=== PATIENT | female | born 1990 | race Caucasian/White ===

== ENCOUNTER 2016-06-28 12:07 | Inpatient (IN) | payer OTHER ==
[2016-06-28 13:19] VITALS: BMI 28.3
--- NOTE | 2016-06-28 13:29 | OBHP ---
Datetime: 06/28/2016 13:23 IP Adm Impression: Term, intrauterine IP Admit Plan: Admit to unit; Initiate labor protocol Admit Comment, IP Provider: 25 yo edc 07/03 presents @ 39.2wks w/ c/o srom @10:45 am and ctxs sin ce 5am. +coitus last night. denies decreased fm or problems with preg. pmhx _ pshx: denies nkda medic: pnv shx: denies etoh, drugs or tobacco use obhx: i: 39.2wk srom p: admit for epidural when pt request dr knowles notified. Latent Phase Labor Pelvic Type - PN: Adequate Extremities - PN: Normal Abdomen - PN: Normal Lungs - PN: Normal Heart - PN: Normal Neurologic - PN: Normal HEENT - PN: Normal General - PN: Normal Presentation-Admit: Vertex FHR - Baseline A Provider: 120 Membranes, Provider: Ruptured Comments, ACOG Physical Exam: gbs neg IP Chief Complaint: Uterine contractions; Suspected ruptured membranes NICHD Variability Prov Fetus A: Moderate 6-25bpm NICHD Accel Fetus A IP Provider: [id number] FHR Category Provider Fetus A: Category I NICHD Decel Fetus A IP Provider: None Dilatation, Provider: 3 Effacement, Provider: 80 Station, Provider: -2 Genitourinary Exam: Normal
[2016-06-28] MEDS ORDERED: Lactated Ringer's 1,000 ML IV SCH ×2 (13:30→14:30)
[2016-06-28] MEDS ORDERED: Oxytocin 30 units/LR 500ML 500 ML IV SCH ×2 (13:45→16:05)
[2016-06-28 14:22] LABS: BASO % 0.1 % (0.0-2.0); EOS % 0.3 % (0.0-4.0); HEMATOCRIT 38.5 % (34.0-47.0); LYMPH # 1.8 K/uL (1.0-4.3); LYMPH % 14.8 % (20.0-40.0); MEAN CELL VOLUME 86.4 fl (81.0-99.0); MEAN CORPUSCULAR HEMOGLOBIN 28.2 pg (27.0-31.0); MEAN CORPUSCULAR HGB CONC 32.6 g/dL (33.0-37.0); MONO # 0.5 K/uL (0.0-0.8); MONO % 4.5 % (0.0-10.0); NEUT # 9.8 K/uL (1.8-7.0); NEUT % 80.3 % (50.0-75.0); NRBC % 0.1 % (0.0-0.0); RED CELL DISTRIBUTION WIDTH 14.9 % (11.5-14.5); WHITE BLOOD COUNT 12.2 K/uL (4.8-10.8)
--- NOTE | 2016-06-28 14:27 | OBADHP ---
Datetime: 06/28/2016 14:24 Admit Comment, IP Provider: 25 yo edc / presents @ 39.2wks w/ c/o srom @10:45 am and ctxs sin ce 5am. +coitus last night. denies decreased fm or problems with preg. pmhx _ pshx: denies nkda medic: pnv shx: denies etoh, drugs or tobacco use obhx: i: 39.2wk srom Latent Phase Labor p: admit for epidural when pt request begin augmentation with pit per dr. knowles Datetime: 06/28/2016 13:23 Pelvic Type - PN: Adequate Extremities - PN: Normal Abdomen - PN: Normal Lungs - PN: Normal Heart - PN: Normal Neurologic - PN: Normal HEENT - PN: Normal General - PN: Normal Presentation-Admit: Vertex FHR - Baseline A Provider: 120 Membranes, Provider: Ruptured Comments, ACOG Physical Exam: gbs neg IP Chief Complaint: Uterine contractions; Suspected ruptured membranes NICHD Variability Prov Fetus A: Moderate 6-25bpm NICHD Accel Fetus A IP Provider: [id number] FHR Category Provider Fetus A: Category I NICHD Decel Fetus A IP Provider: None Dilatation, Provider: 3 Effacement, Provider: 80 Station, Provider: -2 Genitourinary Exam: Normal IP Adm Impression: Term, intrauterine IP Admit Plan: Admit to unit; Initiate labor protocol
[2016-06-28] MEDS ORDERED: Fentanyl/Bupivacaine HCl 250 ML EPI ONE (15:01)
--- NOTE | 2016-06-28 16:17 | OBDS ---
DELIVERY PERSONNEL Nurse Validation Architect Certified: lamont Delivery Doctor: Danie Mann MD Scrub Nurse: lamont Preschool Substitute Teacher: Ines Segundo RN Anesthesiologist: Geothermal Operating Engineer: na MATERNAL INFORMATION Delivery Anesthesia: Epidural Maternal Complications: None Provider Comments: of live female over intact perineum in SALEEM presentation, followed by shoulder and rest of infant atraumatically, mouth and nose suctioned, cord clamped and cut, cord bloo d obtained, placenta delivered spontaneously, fundus firm, EBL = 150 ml, first degree laceration repa ired with 3-0 vicryl rapide, pt tolerated procedure well LABOR SUMMARY EDC: 07/03/2016 00:00 No. Babies in Womb: 1 Attempted: No Labor Anesthesia: Epidural LABOR INFORMATION Reason for Induction: Not Applicable Onset of Labor: 06/28/2016 05:00 Complete Dilatation: 06/28/2016 15:30 Other Ripening Agents: na Oxytocin: N/A Group B Beta Strep: Negative (Annotations: Data stored by N on behalf of user) Antibiotics # of Doses: na Antibiotics Time of Last Dose: na Steroids Given: None Reason Steroids Not Administered: Not Applicable MEMBRANES Membranes Rupture Method: Spontaneous Rupture of Membranes: 06/28/2016 10:45 Amniotic Fluid Color: Clear Amniotic Fluid Amount: None Amniotic Fluid Odor: Normal STAGES OF LABOR Stage 1 hrs: 10 Stage 1 min: 30
[2016-06-28] MEDS ORDERED: Oxycodone/Acetaminophen 5/325 mg Tab PO PRN ×2 (16:19)
[2016-06-28] MEDS ORDERED: Benzocaine/Menthol SPRAY TOP PRN (16:19)
[2016-06-29 07:14] LABS: HEMATOCRIT 35.6 % (34.0-47.0); MEAN CELL VOLUME 85.5 fl (81.0-99.0); MEAN CORPUSCULAR HEMOGLOBIN 28.2 pg (27.0-31.0); RED CELL DISTRIBUTION WIDTH 15.1 % (11.5-14.5)
[2016-06-29] MEDS ORDERED: Multivitamin With Minerals Tab PO SCH (09:00)
--- NOTE | 2016-06-29 18:01 | OBDCSUM ---
Datetime: 06/29/2016 18:00 Discharged to, Provider: Home Follow up at, Provider: OB Disch Instr Activity: Normal activity Disch Instr Diet: Regular Discharge Instructions, Provider: Routine instructions given Discharge Diagnosis, Provider: Term Delivered Discharge Time: 06/29/2016 18:00 Follow up in weeks, Provider: 6 wks Disch Referrals: None Contraception discussed, Prov: Yes Disch Activity Restrictions: No sexual activity; Nothing in vagina - [place], tampons, douche Discharge Comment, Provider: Return to hospital if increased bleeding, pain, temp Contraception after Delivery: Undecided
--- NOTE | 2016-06-29 18:02 | OBPPN ---
Datetime: 06/29/2016 17:58 PP Pain Prov: Within normal limits PP Nausea Prov: Denies PP Flatus Prov: Yes PP Breasts Prov: Normal PP Heart Prov: Normal PP Lungs Prov: Normal PP Abdomen/Uterus Prov: Normal PP Lochia Prov: Normal PP Vulva/Perineum Prov: Normal PP CVA Tenderness Prov: Normal PP Extremities Prov: Normal PP Comments Phys Exam Prov: Fundus firm under umbilicus PP Impression Prov: Normal progression PP Plan Prov: Continue present management PP Progress Note Prov: Patient denies CP, no SOB, no N/V, tolerating PO diet, ambulating/voiding wel l, mild lochia, abdominal pain tolerable with meds, A/P PPD #1 1. Patient recovering well. Pain well controlled, reg diet 2. Patient for discharge 3. Discharge instructions reviewed IP PP Procedures: None Vital Signs Provider PP: Reviewed; Within Normal Limits
== END 2016-06-29 21:50 | disposition home or self-care (01) | DRG 372 ==
LOC: H.EROB2 12:07 → H.L&D 13:19 → H.OB/GYN 18:23
PROVIDERS: ADMIT Obstetrics & Gynecology; ATTEND Obstetrics & Gynecology
PROC: 10E0XZZ Delivery of Products of Conception, External Approach (ICD-10-PCS; principal; 2016-06-28)
PROC: 0HQ9XZZ Repair Perineum Skin, External Approach (ICD-10-PCS; 2016-06-28)
PROC: 4A1HXCZ Monitoring of Products of Conception, Cardiac Rate, External Approach (ICD-10-PCS; 2016-06-28)
DX: O42.02 Full-term premature rupture of membranes, onset of labor within 24 hours of rupture (principal); O70.0 First degree perineal laceration during delivery; Z3A.49 Greater than 42 weeks gestation of pregnancy; Z37.0 Single live birth; Z3A.39 39 weeks gestation of pregnancy